=== PATIENT | female | born 1930 | race Caucasian/White ===

== ENCOUNTER 2019-10-17 10:38 | Outpatient (CLI) | payer MEDICARE, OTHER ==
--- NOTE | 2019-10-19 13:44 | RAD ---
Modified barium swallow HISTORY: Pneumonitis due to inhalation of food and vomiting. Dysphagia. Feeding difficulties. Fluoroscopy time 20 seconds. FINDINGS: Exam was performed by speech pathology with multiple consistencies. Video review is availab le and demonstrates good bolus formation and retropulsion. Mild early spill of contrast with some consistencies. Prominent cricopharyngeal bar noted at the C5-6 level. Deep penetration with thin barium liquids. Wit h to material, there was extensive early spill of contrast to the level of the enlarged piriform sinuses. Small amount of residual with good clearing upon secondary swallowing. The esophagus below the level of the hypopharynx was not evaluated. Please see separate detailed repo rt from speech pathology.
== END 2019-10-17 10:39 | disposition home or self-care (01) ==
PROVIDERS: ATTEND Internal Medicine
DX: J69.0 Pneumonitis due to inhalation of food and vomit (principal); R13.10 Dysphagia, unspecified; R63.3 Feeding difficulties
CPT/HCPCS: 74230

== ENCOUNTER 2019-11-17 10:49 | Inpatient (IN) | payer MEDICARE, OTHER ==
[2019-11-17 12:02] LABS: Band 4 % (5-11); Eosinophils 8 % (0-10); Hemoglobin 14.8 g/dL (12.0-16.0); Lymphocytes 15 % (21-51); MDiff Complete? YES; Mean Corpuscular HGB CONC 32.7 g/dL (32.0-36.0); Mean Corpuscular Hemoglobin 32.8 pg (27.0-31.0); Mean Platelet Volume 11.6 fL (7.4-10.4); Monocytes 4 % (0-10); Neutrophil 67 % (42-75); Platelet Count 59 thou/uL (130-400); Platelet Morphology Comment Appears Decreased; Polychromasia SLIGHT = 2-3 cells (100X) (0-2/hpf); RBC Distribution Width 15.7 % (11.5-14.5); Reactive Lymphocytes 2 % (0-10); Schistocytes SLIGHT = 2-5 cells (100X) (0-1/hpf); White Blood Cell (WBC) Count 2.7 thou/uL (4.8-10.8)
[2019-11-17 12:06] LABS: ALT (SGPT) 47 U/L (8-55); AST (SGOT) 74 U/L (5-34); Albumin 3.2 g/dL (3.4-4.8); Alkaline Phosphatase 468 U/L (40-110); Anion Gap 13 mmol/L (10-20); BUN (Urea Nitrogen) 32 mg/dL (9.8-20.1); Bilirubin, Total 2.4 mg/dL (0.2-1.2); Calc. Creatinine Clearance 0 mL/min (70-130); Calcium 9.6 mg/dL (7.8-10.44); Carbon Dioxide 29 mmol/L (23-31); Chloride 96 mmol/L (98-107); Estimated GFR-MDRD 45; Globulin 3.1 g/dL (2.4-3.5); Glucose 77 mg/dL (83-110); Potassium 4.1 mmol/L (3.5-5.1); Protein, Total 6.3 g/dL (6.0-8.3); Sodium 134 mmol/L (136-145)
--- NOTE | 2019-11-17 12:25 | RAD ---
Chest AP view INDICATION: Shortness of breath, confusion and hypotension COMPARISON: October 31, 2013 and October 11, 2019 FINDINGS: Lungs: There is bilateral perihilar interstitial and airspace edema. There is worsening opacity in t he right lower lobe when compared to the October 11, 2019 exam suspicious for subsegmental volume loss and/or pneumonia. Cardiac silhouette: Moderate cardiomegaly Pulmonary vasculature: Moderate pulmonary vascular congestion Pleural spaces: There is a moderate right and small left pleural effusion Upper abdomen: No abnormality seen. Osseous structures: There is healed fracture deformity involving the lateral right sixth rib. Additional findings: Surgical clips in the axillary region are stable. IMPRESSION: Findings suspicious for mild to moderate CHF. There is opacity in the right lower lobe likely related to subsegmental volume loss within the moderate right pleural effusion. Component pneumonia is not excluded.
[2019-11-17 12:27] LABS: CKMB 1.8 ng/mL (0-6.6)
[2019-11-17 13:25] LABS: PTT 102.4 SEC (22.9-36.1)
[2019-11-17 13:28] LABS: Prothrombin Time 92.8 SEC (12.0-14.7)
[2019-11-17 13:29] LABS: INR-International Normal Ratio 12.4
[2019-11-17 13:36] LABS: Bilirubin Negative (Negative); Blood, Urine Negative (Negative); Clarity Clear (Clear); Glucose, Urine (Dipstick) Normal (Negative); Leukocyte Negative Leu/uL (Negative); Nitrite Negative (Negative); Protein, Urine (Dipstick) Negative (Neg-Trace)
[2019-11-17] MEDS ORDERED: Phytonadione 10 MG/ML AMP ONE (14:23)
[2019-11-17] MEDS ORDERED: Phytonadione 10 MG/ML AMP SLOW IVP SCH (14:30)
--- NOTE | 2019-11-17 15:43 | ULT ---
RIGHT UPPER QUADRANT ULTRASOUND: HISTORY: Altered mental status. FINDINGS: The liver, right kidney, and visualized portions of the pancreas are unremarkable. Numerous shadowin g gallstones are present with gallbladder wall thickening measuring 4 mm. A small amount of free flu id is noted posterior to the liver. IMPRESSION: Cholelithiasis. If there is high clinical concern for cholecystitis, further evaluation with HIDA sc an should be performed. POS: [facility]
[2019-11-17] MEDS ORDERED: Bisacodyl 10 MG SUPP PR PRN (16:09)
[2019-11-17] MEDS ORDERED: Acetaminophen 325 MG TAB PO PRN (16:09)
[2019-11-17] MEDS ORDERED: Senokot S 8.6-50 MG TAB PO PRN (16:09)
[2019-11-17] MEDS ORDERED: Ondansetron PF 4 MG/2 ML Vial IVP PRN (16:09)
[2019-11-17] MEDS ORDERED: Guaifenesin DM 100-10/5 ML UDCUP PO PRN (16:09)
--- NOTE | 2019-11-17 16:55 | CT ---
EXAM: Brain CT scan Without contrast: HISTORY: Altered mental status, weakness COMPARISON: 11/16/2019 FINDINGS: Motion artifact. Stable probable calcified meningioma on the left side of the posterior falx. Atrophy and chronic white matter ischemic change. No focal mass or midline shift. No intra or extra-axial hemorrhage. Stable chronic right sphenoid sinus disease. No significant new process. IMPRESSION: No mass or bleed or other significant acute intracranial process. Stable from yesterday's study.
[2019-11-17] MEDS ORDERED: Carvedilol 6.25 MG TAB PO SCH (17:00)
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
--- NOTE | 2019-11-17 20:31 | PDOC.EVN ---
Event Note - Event Note Event Note: Notified by RN, patient with brief episode of bradycardia to 20s, quickly recovered and remains in 50s. Asymptomatic. Will hold coreg this evening.Continue monitoring. Day team to decide if cardiology consult indicated.
--- NOTE | 2019-11-17 21:35 | PDOC.BPN ---
- Brief Progress Note Code wilberto called on this patient for BP in 40s When I arrived at patient room, I was told patient had bradycardia to 30s with 3.5 sec pause and BP in 40s SBP Patient admitted with INR of 12 and elevated LFTs. Has chronic A.Fib history Earlier, Coreg was held due to bradycardia. Patient awake and answering questions. Oriented to place and person but not to time Able to follow commands and move both upper extremities Examination of LEs reveals fluctuant swelling on the medial aspect of the left leg - concerning for hematoma EKG 12 lead obtained STAT personally reviewed - Sinus bradycardia Get STAT CBC, INR, Type & cross F/u CBC and transfuse PRN Patient will be moved to ICU Will place transcutaneous pads and ZOLL at bedside Has very poor IV access May need pressor therapy and/or blood transfusion Will contact Residents loss prevention auditor for Femoral Central line placement Case DW Dr. Adamson (Medical Delivery Technician) for a consult on this patient Total critical care time spent at bedside -40 min
[2019-11-17 21:41] LABS: #Eosinphils 0.1 thou/uL (0.0-0.7); #Lymphocytes 0.4 thou/uL (1.20-3.40); #Monocytes 0.3 thou/uL (0.11-0.59); %Basophils 0.1 % (0.0-1.0); %Eosinophils 4.3 % (0.0-10.0); %Lymphocytes 13.5 % (21.0-51.0); %Monocytes 10.9 % (0.0-10.0); %Neutrophils 71.3 % (42.0-75.0); Hemoglobin 12.5 g/dL (12.0-16.0); Mean Corpuscular HGB CONC 33.6 g/dL (32.0-36.0); Mean Corpuscular Hemoglobin 33.9 pg (27.0-31.0); Mean Platelet Volume 11.7 fL (7.4-10.4); Platelet Count 49 thou/uL (130-400); RBC Distribution Width 15.6 % (11.5-14.5); Red Blood Cell (RBC) Count 3.68 mill/uL (4.20-5.40); White Blood Cell (WBC) Count 2.8 thou/uL (4.8-10.8)
[2019-11-17 21:45] LABS: INR-International Normal Ratio 3.4; PTT 62.6 SEC (22.9-36.1); Prothrombin Time 33.9 SEC (12.0-14.7)
[2019-11-17] MEDS ORDERED: Norepinephrine 8 MG/0.9% NS 250 ML ONE (21:53)
[2019-11-17] MEDS ORDERED: Norepinephrine 8 MG/0.9% NS 250 ML IVPB SCH (22:19)
[2019-11-17 22:29] LABS: ALT (SGPT) 36 U/L (8-55); AST (SGOT) 69 U/L (5-34); Albumin 2.5 g/dL (3.4-4.8); Alkaline Phosphatase 350 U/L (40-110); Anion Gap 13 mmol/L (10-20); BUN (Urea Nitrogen) 30 mg/dL (9.8-20.1); Bilirubin, Total 1.8 mg/dL (0.2-1.2); Calc. Creatinine Clearance 57 mL/min (70-130); Calcium 8.4 mg/dL (7.8-10.44); Carbon Dioxide 24 mmol/L (23-31); Chloride 100 mmol/L (98-107); Estimated GFR-MDRD 46; Globulin 2.9 g/dL (2.4-3.5); Glucose 97 mg/dL (83-110); Potassium 4.6 mmol/L (3.5-5.1); Protein, Total 5.4 g/dL (6.0-8.3); Sodium 132 mmol/L (136-145)
--- NOTE | 2019-11-17 22:45 | PDOC.BPN ---
- Brief Progress Note Called after tonya ladd when patient became hypotension with systolic in the 40' s. She presented with progressive debility and INR > 10. Saw patient in C4. She was mentating and gave verbal consent to procedure due to emergent nature. Right femoral vein chosen d/t initial INR. Performed under ultrasound guidance. No immediate complications. Cleared to use. Formal op note to be dictated. Additional management per primary team and relevant consultants.
[2019-11-17] MEDS ORDERED: EPINEPHrine 1 MG, Admixture Fee 1 EACH in Dextrose 5% in Water 250 ML IVPB SCH (23:15)
--- NOTE | 2019-11-17 23:49 | PDOC.OP ---
Operative Note - Operative Note Operative Note: Femoral Central Line Procedure Note INDICATION: Severe Hypotension PROCEDURE INVESTMENT ASSOCIATE: Tahmina Campbell DO ATTENDING PHYSICIAN: Harvinder Zee MD who was present the entire time. Ultrasound Used: Yes CONSENT: Verbal consent was obtained from patient prior to the procedure d/t emergent nature. Indications, risks, and benefits were explained at length. PROCEDURE SUMMARY: A time out was performed. My hands were washed immediately prior to the procedure. I wore a surgical cap, mask with protective eyewear, sterile gown and sterile gloves throughout the procedure. The RIGHT inguinal region was prepped using chlorhexidine scrub and draped in sterile fashion using a full drape and sterile probe cover employed. The femoral artery and vein were identified via ultrasound. Anesthesia was achieved using 1% lidocaine. Visualizing the femoral vein throughout the procedure, the introducer needle was inserted medial to the femoral artery, inferior to the inguinal crease and into the femoral vein. Venous blood was withdrawn. The syringe was removed and a guidewire was advanced into the introducer needle. A small incision was made at the skin surface with a scalpel and the introducer needle was exchanged for a dilator over the guidewire. After appropriate dilation was obtained, the dilator was exchanged over the wire for a triple lumen central venous catheter, however there was difficulty in advancing the catheter so it was withdrawn and again the vein was visualized, the introducer needle was inserted and venous blood withdrawn. The guidewire did not pass easily, meeting resistance. A third attempt was made slightly more inferior and successful, easily advancing the guidewire, the dilator, and then the triple lumen CVC as above. The wire was removed and the catheter was hubbed at the skin and sutured in place. A sterile central line dressing was placed over the catheter at the insertion site. The patient tolerated the procedure without any hemodynamic compromise. At time of procedure completion, all ports aspirated and flushed properly. Estimated blood loss is 5-10ml.
[2019-11-17] MEDS: Famotidine 20 MG TAB PO SCH (23:58)
[2019-11-17] MEDS: Latanoprost 0.005% Ophth Soln 2.5 ml Bottle EA EYE SCH (23:58)
[2019-11-17] MEDS: Simvastatin 5 MG TAB PO SCH (23:58)
[2019-11-17] MEDS: Vancomycin 1.5 GRAM/300 ML BAG 1.5 GM in Premix Bag 1 BAG IVPB SCH (23:59)
[2019-11-18] MEDS: Hydrocortisone Sod Succ/PF 100 mg/2 ml Vial IVP SCH ×4 (00:05→17:45)
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
[2019-11-18] MEDS: Piperacillin/Tazobactam 3.375 GM in Sodium Chloride 0.9% 100 ML IVPB SCH ×4 (00:50→17:45)
[2019-11-18 03:34] LABS: #Basophils 0.1 thou/uL (0.0-0.2); #Eosinphils 0.1 thou/uL (0.0-0.7); #Lymphocytes 0.3 thou/uL (1.20-3.40); #Monocytes 0.5 thou/uL (0.11-0.59); #Neutrophils 5.4 thou/uL (1.40-6.50); %Basophils 1.5 % (0.0-1.0); %Eosinophils 1.7 % (0.0-10.0); %Lymphocytes 4.5 % (21.0-51.0); %Monocytes 8.2 % (0.0-10.0); %Neutrophils 84.2 % (42.0-75.0); Hemoglobin 14.2 g/dL (12.0-16.0); Mean Corpuscular HGB CONC 34.4 g/dL (32.0-36.0); Mean Corpuscular Hemoglobin 35.1 pg (27.0-31.0); Mean Platelet Volume 13.8 fL (7.4-10.4); Platelet Count 38 thou/uL (130-400); RBC Distribution Width 15.6 % (11.5-14.5); Red Blood Cell (RBC) Count 4.05 mill/uL (4.20-5.40); White Blood Cell (WBC) Count 6.4 thou/uL (4.8-10.8)
[2019-11-18 03:50] LABS: ALT (SGPT) 49 U/L (8-55); AST (SGOT) 83 U/L (5-34); Albumin 3.1 g/dL (3.4-4.8); Alkaline Phosphatase 457 U/L (40-110); Anion Gap 14 mmol/L (10-20); BUN (Urea Nitrogen) 31 mg/dL (9.8-20.1); Bilirubin, Total 3.2 mg/dL (0.2-1.2); Calc. Creatinine Clearance 61 mL/min (70-130); Calcium 9.1 mg/dL (7.8-10.44); Carbon Dioxide 26 mmol/L (23-31); Chloride 99 mmol/L (98-107); Estimated GFR-MDRD 49; Globulin 2.9 g/dL (2.4-3.5); Glucose 110 mg/dL (83-110); Magnesium 2.1 mg/dL (1.6-2.6); Potassium 4.2 mmol/L (3.5-5.1); Sodium 135 mmol/L (136-145)
[2019-11-18] MEDS: Levothyroxine Sodium 125 MCG TAB PO SCH (05:32)
[2019-11-18] MEDS ORDERED: Furosemide 40 MG/4 ML VIAL SLOW IVP SCH (06:00)
[2019-11-18] MEDS: Potassium Chloride 10 MEQ TAB PO SCH (08:00)
[2019-11-18 08:07] LABS: INR-International Normal Ratio 1.6; PTT 41.5 SEC (22.9-36.1); Prothrombin Time 18.7 SEC (12.0-14.7)
[2019-11-18 08:24] LABS: Anisocytosis SLIGHT = 6-15 cells (100X) (0-5/hpf); Band 22 % (5-11); Eosinophils 1 % (0-10); Hemoglobin 14.1 g/dL (12.0-16.0); Lymphocytes 2 % (21-51); MDiff Complete? YES; Mean Corpuscular HGB CONC 31.8 g/dL (32.0-36.0); Monocytes 3 % (0-10); Neutrophil 71 % (42-75); Platelet Count 63 thou/uL (130-400); Poikilocytosis SLIGHT = 6-15 cells (100X) (0-5/hpf); RBC Distribution Width 15.7 % (11.5-14.5); Reactive Lymphocytes 1 % (0-10); Red Blood Cell (RBC) Count 4.39 mill/uL (4.20-5.40)
[2019-11-18] MEDS ORDERED: FLU VACC TS2019-20(65YR UP)/PF 180 MCG/0.5 ML SYRINGE IM ONE (09:00)
[2019-11-18] MEDS ORDERED: Lisinopril 2.5 MG TAB PO SCH (09:00)
[2019-11-18] MEDS ORDERED: Digoxin 0.25 MG TAB PO SCH (09:00)
--- NOTE | 2019-11-18 09:44 | CT ---
EXAM: CT chest, abdomen, and pelvis without IV contrast: HISTORY: Lethargy, altered mental status, shortness of breath, left hip pain. COMPARISON: None FINDINGS: CT THORAX: Lungs: A moderately large right pleural effusion with associated passive atelectasis is present. Smal l left pleural effusion and atelectasis is identified. Linear densities are seen within the anterior aspect left upper lobe related to areas of scarring or atelectasis. Lymph nodes: Calcified mediastinal and hilar lymph nodes are present related to prior granulomatous d isease. No enlarged lymph nodes are appreciated on this nonenhanced CT scan exam.. Mediastinum: The heart is enlarged. Vascular calcifications are seen in the thoracic aorta and palm ry arteries. Chest wall: Subcutaneous edema is seen about the chest bilaterally greater laterally. There is sugges tion of right mastectomy. Dense coarsened calcification is seen in the right anterolateral chest wall. Surgical clips are seen overlying region of the left chest and along the left lateral chest wal l and on the right. CT ABDOMEN AND PELVIS: Lack of intravenous contrast limits sensitivity for evaluation of the parenchymal organs and vascular structures. Liver: Grossly normal nonenhanced CT appearance. Gallbladder: Multiple gallbladder calculi are seen in the gallbladder.\ Pancreas: Grossly normal nonenhanced CT appearance. Spleen:Few peripheral calcifications are seen. Adrenal glands: Mild nonspecific thickening of the adrenal glands without focal nodule appreciated. Kidneys: Right kidney is rotated. No renal calculi are seen, and there is no hydronephrosis bilateral ly. Urinary Bladder: Grossly normal appearance. Reproductive organs: Evidence of hysterectomy. Bowel: Moderate amount retained fecal material seen throughout the colon. Scattered colonic diverticu li are seen. Loops of small bowel are normal in caliber. The appendix is visualized and normal in caliber. Adenopathy:No enlarged lymph nodes are seen by CT size criteria. Peritoneum/retroperitoneum: Small amount of free fluid is seen adjacent to the liver and spleen. No f luid collection is seen in the abdomen or pelvis. There is minimal presacral edema present. Abdominal wall: Prominent subcutaneous edema is present diffusely suggesting anasarca. A right femora l vein central venous catheter is noted in place with the tip in the distal aspect of the right common iliac vein. Osseous structures: Bilateral glenohumeral osteoarthropathy is present much greater on the right. The re are calcifications seen adjacent to the proximal aspect left humeral neck which may represent intra-articular loose bodies. Multilevel degenerative changes are seen throughout the spine. Bilatera l hip osteoarthritis is present. Mild left convex curvature of thoracolumbar spine is present. IMPRESSION: 1. Moderately large right and small left pleural effusions with findings likely attributable to adjac ent passive atelectasis. 2. Linear scarring versus atelectasis in the left upper lobe. 3. Marked cardiomegaly. 4. Vascular calcifications in the thoracic and abdominal aorta and coronary arteries. 5. Small amount of ascites. There is also a small amount of presacral edema which is nonspecific. No adjacent thickening of the rectum is appreciated, but there is a moderate amount retained fecal material in the rectum. No fluid collection is seen in the abdomen or pelvis. 6. Cholelithiasis. 7. Constipation and colonic diverticulosis. 8. Evidence of anasarca.
[2019-11-18] MEDS: Liothyronine Sodium 25 MCG TAB PO SCH (09:45)
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
--- NOTE | 2019-11-18 17:05 | PDOC.HOSPP ---
- Subjective Encounter Date: 11/18/19 Encounter Time: : Subjective: awake, no sob or chest pain responds well to verbal stimuli no bleeding per rectum - Objective Vital Signs & Weight: Weight Admit Weight 229 lb Weight 229 lb 4.492 oz Most Recent Monitor Data Heart Rate from ECG 69 NIBP 106/65 NIBP BP-Mean 78 Respiration from ECG 16 SpO2 99 I&O: 11/17/19 11/18/19 11/19/19 06:59 06:59 06:59 Intake Total 1073.5 Output Total 650 Balance 423.5 Result Diagrams: 11/18/19 07:49 11/18/19 03:02 Additional Labs: Accuchecks 11/17/19 21:14 POC Glucose 111 H Hospitalist ROS - Medication Medications: Active Medications Generic Name Dose Route Start Last Admin Trade Name Freq PRN Reason Stop Dose Admin Famotidine 20 mg 11/17/19 21:00 11/17/19 23:58 Pepcid PO Not Given 2100 JUDY Hydrocortisone Sodium Succinate 50 mg 11/17/19 23:59 11/18/19 12:16 Solu-Cortef IVP 50 mg Q6HR JUDY Administration Piperacillin Sod/Tazobactam 100 mls @ 200 mls/hr 11/17/19 23:59 11/18/19 12: 16 Sod 3.375 gm/ Sodium Chloride IVPB 100 mls Q6HR JUDY Administration Vancomycin HCl 1.5 gm/ Device 300 mls @ 200 mls/hr 11/17/19 23:30 11/17/19 23 :59 IVPB 300 mls Q24HR JUDY Administration Latanoprost 1 drop 11/17/19 21:00 11/17/19 23:58 Xalatan 0.005% Ophth Soln EA EYE Not Given HS JUDY Levothyroxine Sodium 125 mcg 11/18/19 06:00 11/18/19 05:32 Synthroid PO 125 mcg 0600 JUDY Administration Liothyronine Sodium 25 mcg 11/18/19 09:00 11/18/19 09:45 Cytomel PO Not Given DAILY JUDY Potassium Chloride 10 meq 11/18/19 08:00 11/18/19 08:00 Klor-Con 10 PO Not Given QAM-WM JUDY Simvastatin 10 mg 11/17/19 21:00 11/17/19 23:58 Zocor PO Not Given HS JUDY - Exam General Appearance: awake alert Eye: PERRL, anicteric sclera ENT: no oropharyngeal lesions, dry oral mucosa Neck: supple, no JVD Heart: no murmur, irregular Respiratory: no wheezes, no rales, rhonchi Gastrointestinal: soft, normal bowel sounds, no guarding, no rigidity, distended Extremities: no cyanosis, 2+ LE edema Neurological: cranial nerve grossly intact, no focal deficits Hosp A/P (1) Acute exacerbation of CHF (congestive heart failure) Code(s): I50.9 - HEART FAILURE, UNSPECIFIED Status: Acute Qualifiers: Heart failure type: combined systolic and diastolic Qualified Code(s): I50.43 - Acute on chronic combined systolic (congestive) and diastolic ( congestive) heart failure (2) Sepsis Code(s): A41.9 - SEPSIS, UNSPECIFIED ORGANISM Status: Acute Qualifiers: Sepsis type: sepsis due to unspecified organism Sepsis acute organ dysfunction status: with acute organ dysfunction Severe sepsis acute organ dysfunction type: encephalopathy Severe sepsis shock status: with septic shock Qualified Code(s): A41.9 - Sepsis, unspecified organism; R65.21 - Severe sepsis with septic shock; G93.40 - Encephalopathy, unspecified (3) Coagulopathy Status: Resolved (4) Elevated LFTs Code(s): R94.5 - ABNORMAL RESULTS OF LIVER FUNCTION STUDIES Status: Acute (5) Thrombocytopenia Code(s): D69.6 - THROMBOCYTOPENIA, UNSPECIFIED Status: Acute (6) FTT (failure to thrive) in adult Status: Chronic (7) Dyslipidemia Code(s): E78.5 - HYPERLIPIDEMIA, UNSPECIFIED Status: Chronic (8) Acute metabolic encephalopathy Code(s): G93.41 - METABOLIC ENCEPHALOPATHY Status: Acute (9) Atrial fibrillation Code(s): I48.91 - UNSPECIFIED ATRIAL FIBRILLATION Status: Chronic - Plan is on tapering levophed, sbp around 120 on 3microgram/min now blood and urine cs are -ve. Unclear source of infection, likely lungs or right knee??, has chronic b/l LE lymphedema. is on vanc and zosyn, steroids stress dose coagulopathy is corrected with 3 ffp and vit k 10mg iv on arrival, no hemalatha bleeding anywhere has anasarca, cannot diurese due to hypotension no signs of TTP, has low platelets, appreciate [facility] help d/w son at bedside and gave a full update including results of imaging and labs done. Clinically is improving
--- NOTE | 2019-11-18 18:40 | CON ---
DATE OF CONSULTATION: 11/18/2019 SERVICE: Pulmonary Medicine. REASON FOR CONSULTATION: ICU patient. HISTORY OF PRESENT ILLNESS: The patient is an 89-year-old white female with past medical history significant for Coumadin intake. Ultimately, she was in her usual state of health when she started having increasing lethargy for about the last 2 weeks. She was brought to the Emergency Department, she was discovered to be supratherapeutic. She was placed in the telemetry unit. In that location, she was identified as having extraordinarily low blood pressure. As such, she was rapid and brought to the ICU. A central line was placed and she was started on Levophed. Because she was leukopenic, and had hypothermia, panculture and empiric antibiotics were initiated. The patient cannot provide much in the way of interval history and cannot discuss any of her presenting symptoms. PAST MEDICAL HISTORY: 1. Atrial fibrillation, chronic. 2. Hypertension. 3. Dyslipidemia. 4. Hypothyroidism. 5. Glaucoma. 6. Chronic diastolic heart failure. 7. History of breast cancer. 8. History of uterine cancer. 9. Multiple skin cancers. 10. Osteoarthritis. 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 12. Morbid obesity. PAST SURGICAL HISTORY: 1. Lower extremity surgeries. 2. Hysterectomy. 3. Mastectomy. 4. Left ankle surgery. 5. Right knee surgery. FAMILY HISTORY: Noncontributory. SOCIAL HISTORY: Negative for alcohol, tobacco, or illicit drug use. She has no exposure to chemicals, dust, asbestos, or tuberculosis. ALLERGIES: AMIODARONE. MEDICATIONS: List of the patient's inpatient medications was reviewed. Multiple updates were made at this time. REVIEW OF SYSTEMS: General, head, ears, eyes, nose, throat, cardiovascular, respiratory, GI, , musculoskeletal, neurologic, and skin are negative except as mentioned in the HPI. PHYSICAL EXAMINATION: VITAL SIGNS: Afebrile, pulse 81, and blood pressure 112/62 on 3 mcg of Levophed. Respirations 16 and saturation 99%, currently on 3 L nasal cannula. GENERAL: The patient is awake and alert, in no apparent distress. LUNGS: Good air entry bilaterally. Dependent crackles are noted. No prolonged expiratory phase or wheezing is appreciated. HEART: Normal rate. Regular. ABDOMEN: Soft, nontender, and nondistended. Bowel sounds are positive. MUSCULOSKELETAL: No cyanosis or clubbing. There is bilateral 3+ pitting. NEUROLOGIC: Grossly nonfocal. LABORATORY DATA: Original WBC 2.7. Hemoglobin is stable at 14. Platelets 59,000 are gently uptrending. Neutrophil count and bands are quite elevated. INR was originally 12.4, which is downtrending to 1.6. Total bilirubin is uptrending to 3.2. Alkaline phosphatase 457. Liver function studies are otherwise unremarkable. AST and ALT are both uptrending. Creatinine downtrending to 1.05. Basic metabolic profile is otherwise unremarkable. BNP 211. Urinalysis is negative. Blood cultures x2 and urine culture are negative to-date. IMAGIN. CT of the chest, abdomen, and pelvis demonstrate findings consistent with anasarca. She has bilateral pleural effusions. The right is moderate, and the left is small. There is an adjacent atelectasis present. Marked cardiomegaly is noted. Vascular calcifications are present throughout the abdominal aorta, and coronary arteries. Ascites is noted. There is extensive cholelithiasis. Constipation and diverticulosis are noted without evidence of diverticulitis. 2. CT of the brain demonstrates no acute intracranial abnormality. 3. Abdominal ultrasound demonstrates numerous shadowing gallstones. The wall is thickened measuring 4 mm. Small amount of free fluid is noted in the posterior to the liver. 4. Chest x-ray demonstrates findings related to volume overload/heart failure. No acute pneumonia is identified. ASSESSMENT: 1. Acute hypoxic respiratory failure. 2. Septic shock, suspected. 3. Abdominal discomfort in the right upper quadrant. 4. Metabolic encephalopathy, resolved. DISCUSSION AND PLAN: I believe the patient had leukopenia, and hypothermia secondary to sepsis profile. Right now, her alkaline phosphatase and bilirubin are uptrending. As such, I will move forward with a HIDA scan as directed by the abnormal ultrasound of the abdomen, and extensive cholelithiasis. Gastroenterology consultation will be placed. The patient will remain in the ICU until she is successfully weaned off the Levophed. We have initiated stress doses of steroids, and empiric antibiotics have been initiated, which should be more than adequate to cover a GI bethany. Vancomycin can be dropped in 24 hours, if no additional infectious profile are identified. Critical Care will follow in this location. Dr. Ring has an established relationship with Ms. Mays and will assume coverage starting tomorrow. Job ID: [id number]
--- NOTE | 2019-11-18 19:59 | PRG ---
DATE OF SERVICE: 11/18/2019 SUBJECTIVE: Patient was seen and examined at bedside and overnight events noted. Patient denies any shortness of breath or chest pain or palpitation. No history of nausea or vomiting or diarrhea or fever or chills or cramps. OBJECTIVE: GENERAL: This is an elderly female, in no apparent distress. VITAL SIGNS: Temperature 97.7. Heart rate 76. Respiratory rate 16. Blood pressure 94/49. HEENT: Atraumatic, normocephalic. Oral mucosa is moist NECK: Supple. CARDIOVASCULAR: S1, S2 heard. Rate and rhythm regular. RESPIRATORY: Clear to auscultation. GASTROINTESTINAL: Abdomen is soft. MUSCULOSKELETAL: No tenderness. No edema. DERMATOLOGIC: No skin rash. NEUROLOGIC: Alert and awake and oriented X3. No focal neurologic deficits. Moving all the extremities. PSYCHIATRIC: Mood and affect normal. LABORATORY DATA: Potassium is 4.2, BUN is 31, and creatinine is 1.05. ASSESSMENT AND PLAN: 1. Acute kidney injury on chronic kidney disease stage 3. Renal function is stable. We will continue to monitor. 2. Edema, on diuretics. 3. Hyponatremia, limit fluid intake. 4. Hypoalbuminemia. 5. Elevated liver enzymes. 6. Elevated BNP. Renal function stays stable at this point. Avoid nephrotoxins and we will continue to monitor renal function while on diuretics. Recommend cautious use of potassium. Job ID: [id number]
[2019-11-18] MEDS: Famotidine 20 MG TAB PO SCH (21:18)
[2019-11-18] MEDS: Simvastatin 5 MG TAB PO SCH (21:18)
[2019-11-18] MEDS: Latanoprost 0.005% Ophth Soln 2.5 ml Bottle EA EYE SCH (21:23)
[2019-11-18] MEDS: Vancomycin 1.5 GRAM/300 ML BAG 1.5 GM in Premix Bag 1 BAG IVPB SCH (23:11)
[2019-11-19] MEDS: Hydrocortisone Sod Succ/PF 100 mg/2 ml Vial IVP SCH ×3 (00:54→11:53)
[2019-11-19] MEDS: Piperacillin/Tazobactam 3.375 GM in Sodium Chloride 0.9% 100 ML IVPB SCH ×5 (00:55→23:06)
[2019-11-19 04:57] LABS: INR-International Normal Ratio 1.5
[2019-11-19 05:02] LABS: PTT 47.9 SEC (22.9-36.1)
[2019-11-19] MEDS: Levothyroxine Sodium 125 MCG TAB PO SCH (05:39)
[2019-11-19 06:01] VITALS: BMI 36.8
[2019-11-19 08:14] LABS: #Lymphocytes 0.5 thou/uL (1.20-3.40); #Monocytes 0.1 thou/uL (0.11-0.59); #Neutrophils 2.8 thou/uL (1.40-6.50); %Basophils 0.1 % (0.0-1.0); %Eosinophils 0.4 % (0.0-10.0); %Lymphocytes 13.9 % (21.0-51.0); %Monocytes 4.1 % (0.0-10.0); %Neutrophils 81.5 % (42.0-75.0); Hemoglobin 13.3 g/dL (12.0-16.0); Mean Corpuscular HGB CONC 33.2 g/dL (32.0-36.0); Mean Corpuscular Hemoglobin 33.7 pg (27.0-31.0); Mean Platelet Volume 11.2 fL (7.4-10.4); Platelet Count 52 thou/uL (130-400); RBC Distribution Width 15.6 % (11.5-14.5); Red Blood Cell (RBC) Count 3.95 mill/uL (4.20-5.40); White Blood Cell (WBC) Count 3.4 thou/uL (4.8-10.8)
[2019-11-19 08:29] LABS: ALT (SGPT) 42 U/L (8-55); AST (SGOT) 64 U/L (5-34); Albumin 2.8 g/dL (3.4-4.8); Alkaline Phosphatase 369 U/L (40-110); Anion Gap 11 mmol/L (10-20); BUN (Urea Nitrogen) 28 mg/dL (9.8-20.1); Bilirubin, Total 2.4 mg/dL (0.2-1.2); Calc. Creatinine Clearance 63 mL/min (70-130); Calcium 9.3 mg/dL (7.8-10.44); Carbon Dioxide 28 mmol/L (23-31); Chloride 101 mmol/L (98-107); Estimated GFR-MDRD 52; Globulin 2.7 g/dL (2.4-3.5); Glucose 119 mg/dL (83-110); Protein, Total 5.5 g/dL (6.0-8.3); Sodium 136 mmol/L (136-145)
[2019-11-19] MEDS: Potassium Chloride 10 MEQ TAB PO SCH (08:55)
[2019-11-19] MEDS: Liothyronine Sodium 25 MCG TAB PO SCH (09:08)
--- NOTE | 2019-11-19 12:20 | PRG ---
DATE OF SERVICE: 11/19/2019 SUBJECTIVE: Patient was seen and examined at bedside and overnight events noted. Patient denies any shortness of breath or chest pain or palpitation. No history of nausea or vomiting or diarrhea or fever or chills or cramps. OBJECTIVE: GENERAL: This is well-built female, in no apparent distress. VITAL SIGNS: Temperature 96, heart rate 60, respiratory rate , and blood pressure 109/74. HEENT: Atraumatic, normocephalic. Oral mucosa is moist. NECK: Supple. CARDIOVASCULAR: S1, S2 heard. Rate and rhythm regular. RESPIRATORY: Clear to auscultation. GASTROINTESTINAL: Abdomen is soft. MUSCULOSKELETAL: No tenderness. No edema. DERMATOLOGIC: No skin rash. NEUROLOGIC: Alert and awake and oriented x3. No focal neurologic deficits. Moving all the extremities. PSYCHIATRIC: Mood and affect normal. LABORATORY DATA: Potassium 4.0, BUN is 28, and creatinine is 1.01. ASSESSMENT AND PLAN: 1. Acute kidney injury on chronic kidney stage 3, stable. 2. Edema, stable. 3. Hyponatremia. 4. Hypoalbuminemia. 5. Elevated liver enzymes. 6. Elevated BNP. 7. Overall renal function is better and stable. We will follow. Job ID: [id number]
--- NOTE | 2019-11-19 13:31 | PDOC.HOSPP ---
- Subjective Encounter Date: 11/19/19 Encounter Time: 11:25 Subjective: awake, no abd pain or sob is off levophed drip from 4 am no diarrhea or nausea - Objective Vital Signs & Weight: Vital Signs (12 hours) Temp Pulse Ox 11/19/19 11:00 96.8 F L 11/19/19 08:00 96.9 F L 95 11/19/19 04:00 96.9 F L Weight Admit Weight 229 lb Weight 234 lb 12.677 oz Most Recent Monitor Data Heart Rate from ECG 65 NIBP 109/74 NIBP BP-Mean 85 Respiration from ECG 20 SpO2 92 I&O: 11/18/19 11/19/19 11/20/19 06:59 06:59 07:59 Intake Total 1073.5 1104.3 100 Output Total 650 202 Balance 423.5 902.3 100 Result Diagrams: 11/19/19 08:00 11/19/19 08:00 Hospitalist ROS - Medication Medications: Active Medications Generic Name Dose Route Start Last Admin Trade Name Libra PRN Reason Stop Dose Admin Famotidine 20 mg 11/17/19 21:00 11/18/19 21:18 Pepcid PO 20 mg 2100 JUDY Administration Hydrocortisone Sodium Succinate 50 mg 11/17/19 23:59 11/19/19 11:53 Solu-Cortef IVP 50 mg Q6HR JUDY Administration Piperacillin Sod/Tazobactam 100 mls @ 200 mls/hr 11/17/19 23:59 11/19/19 11: 52 Sod 3.375 gm/ Sodium Chloride IVPB 100 mls Q6HR JUDY Administration Vancomycin HCl 1.5 gm/ Device 300 mls @ 200 mls/hr 11/17/19 23:30 11/18/19 23 :11 IVPB 300 mls Q24HR JUDY Administration Latanoprost 1 drop 11/17/19 21:00 11/18/19 21:23 Xalatan 0.005% Ophth Soln EA EYE Not Given HS JUDY Levothyroxine Sodium 125 mcg 11/18/19 06:00 11/19/19 05:39 Synthroid PO 125 mcg 0600 JUDY Administration Liothyronine Sodium 25 mcg 11/18/19 09:00 11/19/19 09:08 Cytomel PO 25 mcg DAILY JUDY Administration Potassium Chloride 10 meq 11/18/19 08:00 11/19/19 08:55 Klor-Con 10 PO 10 meq QAM-WM JUDY Administration Simvastatin 10 mg 11/17/19 21:00 11/18/19 21:18 Zocor PO 10 mg HS JUDY Administration - Exam General Appearance: awake alert Eye: PERRL, anicteric sclera ENT: no oropharyngeal lesions, moist mucosa Neck: supple, no JVD Heart: RRR, no murmur Respiratory: no wheezes, no rales Gastrointestinal: soft, non-tender, non-distended, normal bowel sounds Extremities: no cyanosis, 1+ LE edema Neurological: cranial nerve grossly intact, no focal deficits Hosp A/P (1) Acute exacerbation of CHF (congestive heart failure) Code(s): I50.9 - HEART FAILURE, UNSPECIFIED Status: Acute Qualifiers: Heart failure type: combined systolic and diastolic Qualified Code(s): I50.43 - Acute on chronic combined systolic (congestive) and diastolic ( congestive) heart failure (2) Sepsis Code(s): A41.9 - SEPSIS, UNSPECIFIED ORGANISM Status: Acute Qualifiers: Sepsis type: sepsis due to unspecified organism Sepsis acute organ dysfunction status: with acute organ dysfunction Severe sepsis acute organ dysfunction type: encephalopathy Severe sepsis shock status: with septic shock Qualified Code(s): A41.9 - Sepsis, unspecified organism; R65.21 - Severe sepsis with septic shock; G93.40 - Encephalopathy, unspecified (3) Coagulopathy Status: Resolved (4) Elevated LFTs Code(s): R94.5 - ABNORMAL RESULTS OF LIVER FUNCTION STUDIES Status: Acute (5) Thrombocytopenia Code(s): D69.6 - THROMBOCYTOPENIA, UNSPECIFIED Status: Acute (6) FTT (failure to thrive) in adult Status: Chronic (7) Dyslipidemia Code(s): E78.5 - HYPERLIPIDEMIA, UNSPECIFIED Status: Chronic (8) Acute metabolic encephalopathy Code(s): G93.41 - METABOLIC ENCEPHALOPATHY Status: Acute (9) Atrial fibrillation Code(s): I48.91 - UNSPECIFIED ATRIAL FIBRILLATION Status: Chronic - Plan off levophed, sbp around 110 blood and urine cs are -ve. Unclear source of infection, likely lungs or right knee??, has chronic b/l LE lymphedema. is on vanc and zosyn, will dc steroids coagulopathy is corrected with 3 ffp and vit k 10mg iv on arrival, no hemalatha bleeding anywhere has anasarca, will diurese when more stable may transfer to tele prognosis guarded
[2019-11-19] MEDS: Famotidine 20 MG TAB PO SCH (20:11)
[2019-11-19] MEDS: Simvastatin 5 MG TAB PO SCH (20:12)
[2019-11-19] MEDS: Latanoprost 0.005% Ophth Soln 2.5 ml Bottle EA EYE SCH (20:12)
[2019-11-19 22:33] LABS: Vancomycin, Trough 16.9 ug/mL
[2019-11-19] MEDS: Vancomycin 1.5 GRAM/300 ML BAG 1.5 GM in Premix Bag 1 BAG IVPB SCH (23:31)
[2019-11-20] MEDS: Levothyroxine Sodium 125 MCG TAB PO SCH (06:17)
[2019-11-20] MEDS: Piperacillin/Tazobactam 3.375 GM in Sodium Chloride 0.9% 100 ML IVPB SCH ×4 (06:17→23:29)
[2019-11-20 06:48] LABS: #Basophils 0.1 thou/uL (0.0-0.2); #Lymphocytes 0.4 thou/uL (1.20-3.40); #Monocytes 0.3 thou/uL (0.11-0.59); #Neutrophils 4.2 thou/uL (1.40-6.50); %Basophils 1.8 % (0.0-1.0); %Eosinophils 0.3 % (0.0-10.0); %Lymphocytes 8.8 % (21.0-51.0); %Monocytes 5.1 % (0.0-10.0); %Neutrophils 84.1 % (42.0-75.0); Hemoglobin 13.4 g/dL (12.0-16.0); INR-International Normal Ratio 2.6; Mean Corpuscular HGB CONC 33.3 g/dL (32.0-36.0); Mean Corpuscular Hemoglobin 33.9 pg (27.0-31.0); Mean Platelet Volume 11.4 fL (7.4-10.4); Platelet Count 58 thou/uL (130-400); Prothrombin Time 27.8 SEC (12.0-14.7); RBC Distribution Width 15.9 % (11.5-14.5); Red Blood Cell (RBC) Count 3.94 mill/uL (4.20-5.40)
[2019-11-20 07:06] LABS: ALT (SGPT) 42 U/L (8-55); AST (SGOT) 58 U/L (5-34); Albumin 2.7 g/dL (3.4-4.8); Alkaline Phosphatase 312 U/L (40-110); Anion Gap 11 mmol/L (10-20); BUN (Urea Nitrogen) 32 mg/dL (9.8-20.1); Bilirubin, Total 2.1 mg/dL (0.2-1.2); Calc. Creatinine Clearance 66 mL/min (70-130); Calcium 9.1 mg/dL (7.8-10.44); Carbon Dioxide 29 mmol/L (23-31); Chloride 104 mmol/L (98-107); Estimated GFR-MDRD 53; Globulin 2.8 g/dL (2.4-3.5); Glucose 100 mg/dL (83-110); Protein, Total 5.5 g/dL (6.0-8.3); Sodium 140 mmol/L (136-145)
[2019-11-20] MEDS: Potassium Chloride 10 MEQ TAB PO SCH (08:48)
[2019-11-20] MEDS: Liothyronine Sodium 25 MCG TAB PO SCH (08:48)
--- NOTE | 2019-11-20 10:18 | PRG ---
DATE OF SERVICE: 11/20/2019 SUBJECTIVE: This morning, she is awake, alert, and responsive. OBJECTIVE: VITAL SIGNS: Temperature 98, blood pressure 99/59, . CHEST: Decreased breath sounds. No wheezing. CARDIAC: Normal S1 and S2. No gallops. ABDOMEN: No masses. LABORATORY DATA: INR is 2.6. Lytes are normal. White count is 5000. Renal function is normal. ASSESSMENT: Atrial fibrillation, congestive heart failure, coagulopathy, thrombocytopenia, metabolic encephalopathy improved. PLAN: She will be transferred out of the ICU. Continue supportive care, PT. Pulmonary will follow. Job ID: [id number]
--- NOTE | 2019-11-20 13:12 | PRG ---
DATE OF SERVICE: 11/20/2019 SUBJECTIVE: Patient was seen and examined at bedside and overnight events noted. Patient denies any shortness of breath or chest pain or palpitation. No history of nausea or vomiting or diarrhea or fever or chills or cramps. OBJECTIVE: General: This is an elderly female, in no acute distress. Vital Signs: Temperature 96.9. Heart Rate 68. Respiratory Rate 18. Blood Pressure 111/59. HEENT: Atraumatic, normocephalic. Oral mucosa is moist. Neck: Supple. Cardiovascular: S1, S2 heard. Rate and rhythm regular. Respiratory: Clear to auscultation. Gastrointestinal: Abdomen is soft. Musculoskeletal: No tenderness. No edema. Dermatologic: No skin rash. Neurologic: Alert and awake and oriented x3. No focal neurologic deficits. Moving all the extremities. Psychiatric: Mood and affect normal. LABORATORY DATA: Potassium 4.0, BUN 32, and creatinine 0.9. ASSESSMENT AND PLAN: 1. Acute kidney injury on chronic kidney, stage 3, much better, looks like back to baseline. 2. Altered mentation, stable. 3. Edema. 4. Hyponatremia. 5. Elevated liver enzymes. Overall, labs are better. I will sign off. Please call back with any questions. Job ID: [id number]
--- NOTE | 2019-11-20 13:20 | PDOC.HOSPP ---
- Subjective Encounter Date: 11/20/19 Encounter Time: 12:00 Subjective: awake, no sob, ate her breakfast responds well to verbal stimuli - Objective Vital Signs & Weight: Vital Signs (12 hours) Temp Pulse Ox 11/20/19 12:00 96.9 F L 11/20/19 08:00 96.8 F L 99 11/20/19 01:00 96.0 F L Weight Admit Weight 229 lb Weight 238 lb 8.642 oz Most Recent Monitor Data Heart Rate from ECG 57 NIBP 87/46 NIBP BP-Mean 59 Respiration from ECG 20 SpO2 99 I&O: 11/19/19 11/20/19 11/21/19 05:59 06:59 06:59 Intake Total 380 Output Total 200 Balance 180 Result Diagrams: 11/20/19 06:30 11/20/19 06:30 Hospitalist ROS - Medication Medications: Active Medications Generic Name Dose Route Start Last Admin Trade Name Freq PRN Reason Stop Dose Admin Famotidine 20 mg 11/17/19 21:00 11/19/19 20:11 Pepcid PO 20 mg 2100 JUDY Administration Piperacillin Sod/Tazobactam 100 mls @ 200 mls/hr 11/17/19 23:59 11/20/19 12: 05 Sod 3.375 gm/ Sodium Chloride IVPB 100 mls Q6HR JUDY Administration Vancomycin HCl 1.5 gm/ Device 300 mls @ 200 mls/hr 11/17/19 23:30 11/19/19 23 :31 IVPB 300 mls Q24HR JUDY Administration Latanoprost 1 drop 11/17/19 21:00 11/19/19 20:12 Xalatan 0.005% Ophth Soln EA EYE Not Given HS JUDY Levothyroxine Sodium 125 mcg 11/18/19 06:00 11/20/19 06:17 Synthroid PO 125 mcg 0600 JUDY Administration Liothyronine Sodium 25 mcg 11/18/19 09:00 11/20/19 08:48 Cytomel PO 25 mcg DAILY JUDY Administration Potassium Chloride 10 meq 11/18/19 08:00 11/20/19 08:48 Klor-Con 10 PO 10 meq QAM-WM JUDY Administration Simvastatin 10 mg 11/17/19 21:00 11/19/19 20:12 Zocor PO 10 mg HS JUDY Administration - Exam General Appearance: awake alert Eye: PERRL, anicteric sclera ENT: no oropharyngeal lesions, moist mucosa Neck: supple, no JVD Heart: RRR, no murmur Respiratory: no wheezes, no rales Gastrointestinal: soft, non-tender, non-distended, normal bowel sounds Extremities: no cyanosis, 2+ LE edema Neurological: cranial nerve grossly intact, no focal deficits Hosp A/P (1) Acute exacerbation of CHF (congestive heart failure) Code(s): I50.9 - HEART FAILURE, UNSPECIFIED Status: Acute Qualifiers: Heart failure type: combined systolic and diastolic Qualified Code(s): I50.43 - Acute on chronic combined systolic (congestive) and diastolic ( congestive) heart failure (2) Sepsis Code(s): A41.9 - SEPSIS, UNSPECIFIED ORGANISM Status: Acute Qualifiers: Sepsis type: sepsis due to unspecified organism Sepsis acute organ dysfunction status: with acute organ dysfunction Severe sepsis acute organ dysfunction type: encephalopathy Severe sepsis shock status: with septic shock Qualified Code(s): A41.9 - Sepsis, unspecified organism; R65.21 - Severe sepsis with septic shock; G93.40 - Encephalopathy, unspecified (3) Coagulopathy Status: Resolved (4) Elevated LFTs Code(s): R94.5 - ABNORMAL RESULTS OF LIVER FUNCTION STUDIES Status: Acute (5) Thrombocytopenia Code(s): D69.6 - THROMBOCYTOPENIA, UNSPECIFIED Status: Acute (6) FTT (failure to thrive) in adult Status: Chronic (7) Dyslipidemia Code(s): E78.5 - HYPERLIPIDEMIA, UNSPECIFIED Status: Chronic (8) Acute metabolic encephalopathy Code(s): G93.41 - METABOLIC ENCEPHALOPATHY Status: Acute (9) Atrial fibrillation Code(s): I48.91 - UNSPECIFIED ATRIAL FIBRILLATION Status: Chronic - Plan off levophed from 11/19/2019, sbp around 90-110, cannot diurese. blood and urine cs are -ve. Unclear source of infection, likely lungs or right knee??, has chronic b/l LE lymphedema. is on vanc and zosyn coagulopathy is corrected with 3 ffp and vit k 10mg iv on arrival, no hemalatha bleeding anywhere has anasarca, needs diuresis when more stable may transfer to [facility] guarded will get palliative care consultation for hospice or palliative care, has mulitple med issues and adv age with very poor functional status.
[2019-11-20] MEDS: Famotidine 20 MG TAB PO SCH (20:27)
[2019-11-20] MEDS: Latanoprost 0.005% Ophth Soln 2.5 ml Bottle EA EYE SCH (20:27)
[2019-11-20] MEDS: Simvastatin 5 MG TAB PO SCH (20:27)
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
--- NOTE | 2019-11-20 22:27 | PRG ---
DATE OF SERVICE: 11/19/2019 SUBJECTIVE: Shelia Martinez who has been admitted to the hospital on 11/16 with hypotension. She had a CT abdomen done, which showed multiple abnormalities. A chest x-ray shows right-sided pleural effusion. In the ICU, she was on a Levophed. She has been off the Levophed. This morning, she denies any pain, discomfort, or shortness of breath. OBJECTIVE: VITAL SIGNS: Saturations are 98%, blood pressure , respirations 18. CHEST: Decreased breath sounds in right lung and left unremarkable. CARDIAC: Normal S1 and S2. No gallops. ABDOMEN: No masses. LABORATORY DATA: White count 3000, H and H of 13 and 40, and platelet count is low at 50,000. INR is 1.5. Renal function has improved. Total bilirubin is 2.5, AST , and alkaline phosphatase is 365. IMPRESSION: Hypotension, coagulopathy, abnormal liver function profile, right pleural effusion, congestive heart failure, advanced age, obesity. PLAN: 1. Continue broad-spectrum antibiotics and stress-dosed steroids. 2. Deescalate antibiotics once we get cultures back. 3. We will follow. Job ID: [id number]
[2019-11-21] MEDS: HYDROcodone/Acetaminophen 5/325 mg Tablet PO PRN ×2 (00:06→05:08)
[2019-11-21] MEDS: Vancomycin 1.5 GRAM/300 ML BAG 1.5 GM in Premix Bag 1 BAG IVPB SCH (00:06)
[2019-11-21 05:08] LABS: #Eosinphils 0.4 thou/uL (0.0-0.7); #Lymphocytes 0.6 thou/uL (1.20-3.40); #Monocytes 0.4 thou/uL (0.11-0.59); %Basophils 0.2 % (0.0-1.0); %Eosinophils 6.7 % (0.0-10.0); %Lymphocytes 10.5 % (21.0-51.0); %Neutrophils 75.6 % (42.0-75.0); Hemoglobin 13.4 g/dL (12.0-16.0); Mean Corpuscular HGB CONC 33.1 g/dL (32.0-36.0); Mean Corpuscular Hemoglobin 33.7 pg (27.0-31.0); Mean Platelet Volume 10.9 fL (7.4-10.4); Platelet Count 64 thou/uL (130-400); RBC Distribution Width 15.8 % (11.5-14.5); Red Blood Cell (RBC) Count 3.98 mill/uL (4.20-5.40); White Blood Cell (WBC) Count 5.3 thou/uL (4.8-10.8)
[2019-11-21] MEDS: Levothyroxine Sodium 125 MCG TAB PO SCH (05:08)
[2019-11-21] MEDS: Piperacillin/Tazobactam 3.375 GM in Sodium Chloride 0.9% 100 ML IVPB SCH (05:08)
[2019-11-21 05:10] LABS: PTT 46.8 SEC (22.9-36.1); Prothrombin Time 40.2 SEC (12.0-14.7)
[2019-11-21 05:17] LABS: INR-International Normal Ratio 4.2
[2019-11-21 05:26] LABS: ALT (SGPT) 45 U/L (8-55); AST (SGOT) 60 U/L (5-34); Albumin 2.7 g/dL (3.4-4.8); Alkaline Phosphatase 278 U/L (40-110); Anion Gap 11 mmol/L (10-20); BUN (Urea Nitrogen) 35 mg/dL (9.8-20.1); Bilirubin, Total 2.4 mg/dL (0.2-1.2); Calc. Creatinine Clearance 57 mL/min (70-130); Calcium 9.2 mg/dL (7.8-10.44); Carbon Dioxide 30 mmol/L (23-31); Chloride 103 mmol/L (98-107); Estimated GFR-MDRD 47; Globulin 2.7 g/dL (2.4-3.5); Glucose 84 mg/dL (83-110); Potassium 3.9 mmol/L (3.5-5.1); Protein, Total 5.4 g/dL (6.0-8.3); Sodium 140 mmol/L (136-145)
[2019-11-21] MEDS: Liothyronine Sodium 25 MCG TAB PO SCH (07:48)
[2019-11-21] MEDS: Potassium Chloride 10 MEQ TAB PO SCH (07:48)
--- NOTE | 2019-11-21 08:09 | PRG ---
DATE OF SERVICE: 11/20/2019 SUBJECTIVE: She is a very pleasant 89-year-old female, hospitalized 2 days ago with a prolonged PT and INR and was given IV vitamin K. She was also hypotensive and overnight. I was asked to see this patient because of abnormal LFTs. The liver function tests are mildly elevated. The patient interestingly has no abdominal pain, no nausea, no vomiting. She had abdominal sonogram, which revealed some gallstone but no dilation of the bile duct. The patient is tolerating diet at this time. Her vitals were stable. She does not offer any complaints. PHYSICAL EXAMINATION: GENERAL: She appears very comfortable. VITAL SIGNS: Stable. Afebrile. Pulse is 156, blood pressure is around 87/46. CARDIOVASCULAR: Within normal limits. LUNGS: Within normal limits. ABDOMEN: Soft. No organomegaly. No tenderness. No masses. EXTREMITIES: Reveal chronic lymphedema and also some healed wound with over the right knee. LABORATORY DATA: Lytes are normal. BUN 32, creatinine is 0.99. Normal CBC. Liver function tests are coming down. She also has low platelet count of 58,000. LFTs from today, bilirubin is down to 2.1, AST down to 58, ALT 42, alkaline phosphatase 312. CLINICAL IMPRESSION: 1. Abnormal LFTs, etiology unclear. Possibilities include drug-induced liver injury, hypotension, and possibility of choledocholithiasis. Interestingly, the patient has no abdominal pain, no nausea or vomiting. 2. Thrombocytopenia, recurrent. 3. Prolonged PT, INR, . RECOMMENDATION: 1. Diet as tolerated. 2. Followup LFTs. 3. The family has decided not to do any aggressive measures and I will treat her symptomatically. Job ID: [id number]
--- NOTE | 2019-11-21 08:46 | PRG ---
DATE OF SERVICE: 11/21/2019 SUBJECTIVE: Shelia Mays remains in the ICU without any distress. She denies any discomfort or pain. OBJECTIVE: VITAL SIGNS: Temperature is 96, blood pressure 110/80, saturations are 98%, and respiratory rate 18. CHEST: Decreased breath sounds. No wheezing. CARDIAC: Normal S1 and S2. No gallops. ABDOMEN: No masses. LABORATORY DATA: INR is 4.2, prolonged. Albumin is low at 2.7, bilirubin is 2.4, and AST 60. White count 5000. All cultures so far negative. IMPRESSION: 1. Abnormal LFT, etiology unclear. 2. Respiratory failure. 3. Small pleural effusion. 4. Cardiomegaly. 5. Ascites. 6. Cholelithiasis. PLAN: continue antibiotics ,PT. Continue PT, supportive care. Deescalate antibiotics. We will follow. Job ID: [id number] MTDD
[2019-11-21] MEDS: Amoxicillin/Potassium Clav 500 MG TAB PO SCH ×2 (09:00→21:30)
--- NOTE | 2019-11-21 09:29 | RAD ---
XR Chest 1 View Portable History: Congestive heart failure Comparison: Radiograph November 17, 2019 Findings: Large right and moderate left pleural effusion. Mild pulmonary edema. No pneumothorax. Hear t size is enlarged. Dense calcifications of the aorta. Radiopacity projects over the right hemithorax, ovoid in nature, l ikely calcified granuloma of the soft tissues as seen on a recent CT exam. Impression: Mild progressive pulmonary edema. Similar effusions and cardiomegaly.
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
--- NOTE | 2019-11-21 13:50 | PDOC.PALFU ---
Palliative Care Follow-up Note Met with patient and son, then both independently. Discussed Goal of care specifically with son in relation to comfort measures and seeking non aggressive measures. Issue in relation to gaol of care is discharge Son is calling resources through work and states he will call a hospice company to come out to the home setting to discuss options of hospice in the home, concern is caregivers as he is not able to care for her independently and resources are limited. Currently with paid caregiver in the home. He would prefer to go to a residential care setting, but Ms Mays is desiring to return home. Consideration is that there may not be financial coverage for both residential care and hospice. Will reach out to Kaelyn Escamilla CM CCU and Ar[employer] to determine if there is any coverage that is unknown that could either provide paid caregivers in the home setting or both hospice and care in a facility. Will transition to diet with aspiration risk as patient failed her swallow study.
--- NOTE | 2019-11-21 19:29 | PDOC.HOSPP ---
- Subjective Encounter Date: 11/21/19 Subjective: The patient was seen and examined. She is off vasopressors today. She is sitting in her bed and enjoying her meal. Does not appear to be in any significant respiratory distress. - Objective Vital Signs & Weight: Vital Signs (12 hours) Temp Pulse Ox 11/21/19 16:00 97.4 F L 11/21/19 12:00 97.8 F 11/21/19 08:00 97.4 F L 99 Weight Admit Weight 229 lb Weight 227 lb 8.273 oz Most Recent Monitor Data Heart Rate from ECG 62 NIBP 96/58 NIBP BP-Mean 70 Respiration from ECG 15 SpO2 100 I&O: 11/20/19 11/21/19 11/22/19 06:59 06:59 06:59 Intake Total 1691 Output Total 550 600 Balance 1141 -600 Result Diagrams: 11/21/19 04:00 11/21/19 04:00 Hospitalist ROS - Medication Medications: Active Medications Generic Name Dose Route Start Last Admin Trade Name Freq PRN Reason Stop Dose Admin Hydrocodone Bitart/Acetaminophen 1 tab 11/17/19 16:09 11/21/19 05:08 [place] 5/325 PO 1 tab Q4H PRN Administration Moderate Pain (4-6) Amoxicillin/Clavulanate Potassium 500 mg 11/21/19 09:00 11/21/19 09:00 Augmentin PO 11/26/19 09:01 500 mg Q12HR JUDY Administration Famotidine 20 mg 11/17/19 21:00 11/20/19 20:27 Pepcid PO 20 mg 2100 JUDY Administration Latanoprost 1 drop 11/17/19 21:00 11/20/19 20:27 Xalatan 0.005% Ophth Soln EA EYE 1 drop HS JUDY Administration Levothyroxine Sodium 125 mcg 11/18/19 06:00 11/21/19 05:08 Synthroid PO 125 mcg 0600 JUDY Administration Liothyronine Sodium 25 mcg 11/18/19 09:00 11/21/19 07:48 Cytomel PO 25 mcg DAILY JUDY Administration Potassium Chloride 10 meq 11/18/19 08:00 11/21/19 07:48 Klor-Con 10 PO 10 meq QAM-WM JUDY Administration Senna/Docusate Sodium 2 tab 11/17/19 16:09 11/20/19 20:26 Senokot S PO 2 tab BID PRN Administration Constipation Simvastatin 10 mg 11/17/19 21:00 11/20/19 20:27 Zocor PO 10 mg HS JUDY Administration - Exam General Appearance: NAD, awake alert ENT: normocephalic atraumatic Neck: supple, no JVD Heart: RRR, no murmur, no gallops, no rubs, normal peripheral pulses Respiratory: CTAB, no wheezes, no rales, no ronchi, normal chest expansion Gastrointestinal: soft, non-tender, non-distended, normal bowel sounds Hosp A/P (1) Acute exacerbation of CHF (congestive heart failure) Code(s): I50.9 - HEART FAILURE, UNSPECIFIED Status: Acute Qualifiers: Heart failure type: combined systolic and diastolic Qualified Code(s): I50.43 - Acute on chronic combined systolic (congestive) and diastolic ( congestive) heart failure (2) Acute metabolic encephalopathy Code(s): G93.41 - METABOLIC ENCEPHALOPATHY Status: Acute (3) Elevated LFTs Code(s): R94.5 - ABNORMAL RESULTS OF LIVER FUNCTION STUDIES Status: Acute (4) Physical deconditioning Code(s): R53.81 - OTHER MALAISE Status: Acute - Plan Cardiogenic shock resolved. The patient is off both dobutamine and Levophed drips. Her respiratory status appears to be stable. The patient and her family are deciding against more intensive treatment. Their goal is to be discharged to home or residential sitting and then transition to hospice. She is stable to be transferred to the medical floor.
[2019-11-21] MEDS: Latanoprost 0.005% Ophth Soln 2.5 ml Bottle EA EYE SCH (21:30)
[2019-11-21] MEDS: Simvastatin 5 MG TAB PO SCH (21:30)
[2019-11-21] MEDS: Famotidine 20 MG TAB PO SCH (21:30)
[2019-11-22 05:26] LABS: PTT 58.6 SEC (22.9-36.1); Prothrombin Time 44.3 SEC (12.0-14.7)
[2019-11-22 05:30] LABS: #Eosinphils 0.4 thou/uL (0.0-0.7); #Lymphocytes 0.5 thou/uL (1.20-3.40); #Monocytes 0.4 thou/uL (0.11-0.59); #Neutrophils 3.8 thou/uL (1.40-6.50); %Basophils 0.2 % (0.0-1.0); %Eosinophils 7.8 % (0.0-10.0); %Lymphocytes 9.6 % (21.0-51.0); %Neutrophils 74.4 % (42.0-75.0); Hemoglobin 13.9 g/dL (12.0-16.0); Mean Corpuscular HGB CONC 31.8 g/dL (32.0-36.0); Mean Platelet Volume 11.2 fL (7.4-10.4); Platelet Count 71 thou/uL (130-400); RBC Distribution Width 16.1 % (11.5-14.5); Red Blood Cell (RBC) Count 4.22 mill/uL (4.20-5.40)
[2019-11-22 05:35] LABS: INR-International Normal Ratio 4.8
[2019-11-22 05:42] LABS: ALT (SGPT) 39 U/L (8-55); AST (SGOT) 46 U/L (5-34); Albumin 2.5 g/dL (3.4-4.8); Alkaline Phosphatase 255 U/L (40-110); Anion Gap 19 mmol/L (10-20); BUN (Urea Nitrogen) 30 mg/dL (9.8-20.1); Bilirubin, Total 2.5 mg/dL (0.2-1.2); Calc. Creatinine Clearance 68 mL/min (70-130); Calcium 8.7 mg/dL (7.8-10.44); Carbon Dioxide 22 mmol/L (23-31); Chloride 106 mmol/L (98-107); Estimated GFR-MDRD 58; Globulin 2.7 g/dL (2.4-3.5); Glucose 78 mg/dL (83-110); Protein, Total 5.2 g/dL (6.0-8.3); Sodium 143 mmol/L (136-145)
[2019-11-22] MEDS: Levothyroxine Sodium 125 MCG TAB PO SCH (06:34)
[2019-11-22] MEDS: HYDROcodone/Acetaminophen 5/325 mg Tablet PO PRN (09:20)
[2019-11-22] MEDS: Liothyronine Sodium 25 MCG TAB PO SCH (09:20)
[2019-11-22] MEDS: Amoxicillin/Potassium Clav 500 MG TAB PO SCH ×2 (09:21→20:21)
[2019-11-22] MEDS: Potassium Chloride 10 MEQ TAB PO SCH (09:21)
--- NOTE | 2019-11-22 09:40 | PRG ---
DATE OF SERVICE: 11/22/2019 SUBJECTIVE: This morning, awake, alert, and responsive. She denies any shortness of breath, pain. OBJECTIVE: VITAL SIGNS: Her blood pressure is 89/57, saturations on 2 L, respiratory rate 16, temperature 97, pulse 79. CHEST: Decreased breath sounds. No wheezing. CARDIAC: Normal S1, S2. ABDOMEN: No masses. LABORATORY DATA: Abnormal LFT. Bilirubin 2.5. INR 4.8. White count 5000. Chest x-ray shows increasing right pleural effusion. ASSESSMENT: 1. Hepatic failure. 2. Coagulopathy. 3. Right pleural effusion. PLAN: The patient is a DNR. Comfort care. Pulmonary/Critical Care will follow at a distance. Call, if needed. Job ID: [id number]
[2019-11-22 13:58] LABS: Prothrombin Time 43.4 SEC (12.0-14.7)
[2019-11-22 13:59] LABS: INR-International Normal Ratio 4.6
[2019-11-22] MEDS: Famotidine 20 MG TAB PO SCH (20:21)
[2019-11-22] MEDS: Simvastatin 5 MG TAB PO SCH (20:22)
[2019-11-22] MEDS: Latanoprost 0.005% Ophth Soln 2.5 ml Bottle EA EYE SCH (20:22)
--- NOTE | 2019-11-22 21:58 | PDOC.HOSPP ---
- Subjective Encounter Date: 11/22/19 Subjective: No SOB or distress - Objective Vital Signs & Weight: Vital Signs (12 hours) Temp Pulse Resp BP BP Pulse Ox 11/22/19 20:00 97.8 F 73 18 96/68 93 L 11/22/19 17:00 97.2 F L 74 16 112/74 98 11/22/19 11:16 97.3 F L 76 20 83/51 L 100 Weight Admit Weight 229 lb Weight 227 lb 8.273 oz Most Recent Monitor Data Heart Rate from ECG 71 NIBP 105/61 NIBP BP-Mean 75 Respiration from ECG 19 SpO2 96 I&O: 11/21/19 11/22/19 11/23/19 06:59 06:59 06:59 Intake Total 1691 160 Output Total 550 1075 Balance 1141 -915 Result Diagrams: 11/22/19 05:05 11/22/19 05:05 Hospitalist ROS - Medication Medications: Active Medications Generic Name Dose Route Start Last Admin Trade Name Freq PRN Reason Stop Dose Admin Hydrocodone Bitart/Acetaminophen 1 tab 11/17/19 16:09 11/22/19 09:20 [place] 5/325 PO 1 tab Q4H PRN Administration Moderate Pain (4-6) Amoxicillin/Clavulanate Potassium 500 mg 11/21/19 09:00 11/22/19 20:21 Augmentin PO 11/26/19 09:01 500 mg Q12HR JUDY Administration Famotidine 20 mg 11/17/19 21:00 11/22/19 20:21 Pepcid PO 20 mg 2100 JUDY Administration Latanoprost 1 drop 11/17/19 21:00 11/22/19 20:22 Xalatan 0.005% Ophth Soln EA EYE 1 drop HS JUDY Administration Levothyroxine Sodium 125 mcg 11/18/19 06:00 11/22/19 06:34 Synthroid PO 125 mcg 0600 JUDY Administration Liothyronine Sodium 25 mcg 11/18/19 09:00 11/22/19 09:20 Cytomel PO 25 mcg DAILY JUDY Administration Potassium Chloride 10 meq 11/18/19 08:00 11/22/19 09:21 Klor-Con 10 PO 10 meq QAM-WM JUDY Administration Senna/Docusate Sodium 2 tab 11/17/19 16:09 11/20/19 20:26 Senokot S PO 2 tab BID PRN Administration Constipation Simvastatin 10 mg 11/17/19 21:00 11/22/19 20:22 Zocor PO 10 mg HS JUDY Administration - Exam General Appearance: NAD ENT: normocephalic atraumatic Neck: supple, no JVD Heart: RRR Respiratory: normal chest expansion, rhonchi Gastrointestinal: soft, non-tender, non-distended, normal bowel sounds Hosp A/P (1) Acute exacerbation of CHF (congestive heart failure) Code(s): I50.9 - HEART FAILURE, UNSPECIFIED Status: Acute Qualifiers: Heart failure type: combined systolic and diastolic Qualified Code(s): I50.43 - Acute on chronic combined systolic (congestive) and diastolic ( congestive) heart failure (2) Acute metabolic encephalopathy Code(s): G93.41 - METABOLIC ENCEPHALOPATHY Status: Acute (3) Elevated LFTs Code(s): R94.5 - ABNORMAL RESULTS OF LIVER FUNCTION STUDIES Status: Acute (4) Physical deconditioning Code(s): R53.81 - OTHER MALAISE Status: Acute - Plan Cardiogenic shock resolved. The patient is off both dobutamine and Levophed drips. Her respiratory status appears to be stable. The patient and her family are deciding against more intensive treatment. Their goal is to be discharged to home or director statistical programming sitting and then transition to hospice. She is stable to be transferred to the medical floor. Consult CM for DC planning.
[2019-11-23] MEDS: Levothyroxine Sodium 125 MCG TAB PO SCH (05:24)
[2019-11-23 06:13] LABS: INR-International Normal Ratio 3.9; Prothrombin Time 37.8 SEC (12.0-14.7)
[2019-11-23 06:14] LABS: PTT 64.6 SEC (22.9-36.1)
[2019-11-23 06:22] LABS: Band 3 % (5-11); Eosinophils 3 % (0-10); Hemoglobin 14.2 g/dL (12.0-16.0); Lymphocytes 9 % (21-51); MDiff Complete? YES; Mean Corpuscular Hemoglobin 33.2 pg (27.0-31.0); Mean Platelet Volume 8.2 fL (7.4-10.4); Monocytes 3 % (0-10); Neutrophil 82 % (42-75); Platelet Count 81 thou/uL (130-400); Platelet Morphology Comment Appears Decreased; RBC Distribution Width 16.5 % (11.5-14.5); RBC Morphology Normal; Red Blood Cell (RBC) Count 4.28 mill/uL (4.20-5.40); White Blood Cell (WBC) Count 5.3 thou/uL (4.8-10.8)
[2019-11-23 06:33] LABS: ALT (SGPT) 37 U/L (8-55); AST (SGOT) 44 U/L (5-34); Albumin 2.7 g/dL (3.4-4.8); Alkaline Phosphatase 304 U/L (40-110); Anion Gap 13 mmol/L (10-20); BUN (Urea Nitrogen) 24 mg/dL (9.8-20.1); Calc. Creatinine Clearance 78 mL/min (70-130); Carbon Dioxide 26 mmol/L (23-31); Chloride 108 mmol/L (98-107); Estimated GFR-MDRD 68; Globulin 2.9 g/dL (2.4-3.5); Glucose 79 mg/dL (83-110); Potassium 4.2 mmol/L (3.5-5.1); Protein, Total 5.6 g/dL (6.0-8.3); Sodium 143 mmol/L (136-145)
[2019-11-23] MEDS: Amoxicillin/Potassium Clav 500 MG TAB PO SCH (09:23)
[2019-11-23] MEDS: Liothyronine Sodium 25 MCG TAB PO SCH (09:23)
[2019-11-23] MEDS: Potassium Chloride 10 MEQ TAB PO SCH (09:23)
--- NOTE | 2019-11-23 10:45 | PDOC.PALPN ---
Palliative Progress Note - Subjective Awake, alert, pleasantly confused. Patient ROS negative however, secondary to confusion is not a reliable source. - Objective Vital Signs: Vital Signs - Most Recent Temp Pulse Resp BP Pulse Ox 97.3 F L 83 20 107/52 L 93 L 11/23/19 07:26 11/23/19 07:26 11/23/19 07:26 11/23/19 07:26 11/23/19 07:42 - Physical Exam Constitutional: confusion, ill appearing HEENT: moist MMs, sclera anicteric Respiratory: diminished lung sound Cardiovascular: RRR Deviation from normal: distant heart sounds Gastrointestinal: soft, non-tender, incontinent Genitourinary: incontinent Musculoskeletal: no clubbing, edema present Neurology: no focal deficits Lymphatic: no nodes Skin: bruising, fragile Deviation from normal: lower ext wound as per photo in notes. Deviation from normal: Oriented to self but confused as to location and time. Confusion - Assessment (1) Palliative care encounter Code(s): Z51.5 - ENCOUNTER FOR PALLIATIVE CARE Current Visit: Yes Status: Acute (2) Physical deconditioning Code(s): R53.81 - OTHER MALAISE Current Visit: Yes Status: Acute (3) Acute exacerbation of CHF (congestive heart failure) Code(s): I50.9 - HEART FAILURE, UNSPECIFIED Current Visit: Yes Status: Acute Qualifiers: Heart failure type: combined systolic and diastolic Qualified Code(s): I50.43 - Acute on chronic combined systolic (congestive) and diastolic ( congestive) heart failure (4) Thrombocytopenia Code(s): D69.6 - THROMBOCYTOPENIA, UNSPECIFIED Current Visit: Yes Status: Acute (5) FTT (failure to thrive) in adult Current Visit: Yes Status: Chronic (6) Coagulopathy Current Visit: Yes Status: Resolved (7) Chronic diastolic heart failure Code(s): I50.32 - CHRONIC DIASTOLIC (CONGESTIVE) HEART FAILURE Current Visit: No Status: Chronic - Plan Plan: Met with son, difficult to establish Goal of Care as patient is not able to return to home setting secondary to elevated need for ADL and limited caregivers in home. Son has transitioned Ms Mays to comfort care and is requesting Hospice Evaluation for inpatient. Symptom management is expected for anticipated decline and respiratory compromise. Medications, with the exception of comfort meds, have been discontinued. Comfort medications including Ativan for restlessness and Morphine for air hunger,discomfort. Scopolamine to mitigate secretions. Choice Letter Obtained, and Magi from CM requested evaluation. Dr Ann notified [50] minutes spent on this encounter with >50% of the time in counseling and coordination of care. - ROS Non Response: due to mental status
[2019-11-23] MEDS ORDERED: Morphine 2 MG/ML SYRINGE SLOW IVP PRN (10:56)
[2019-11-23] MEDS: Lorazepam 2 MG/ML VIAL SLOW IVP SCH ×6 (11:56→22:45)
[2019-11-23] MEDS ORDERED: Scopolamine 1.5 mg/72 hour Patch TD SCH (12:00)
--- NOTE | 2019-11-23 15:49 | PDOC.HOSPP ---
- Subjective Encounter Date: 11/23/19 Subjective: The patient remains alert and stable - Objective Vital Signs & Weight: Vital Signs (12 hours) Temp Pulse Resp BP Pulse Ox 11/23/19 07:42 93 L 11/23/19 07:26 97.3 F L 83 20 107/52 L 93 L Weight Admit Weight 229 lb Weight 227 lb 8.273 oz Most Recent Monitor Data Heart Rate from ECG 71 NIBP 105/61 NIBP BP-Mean 75 Respiration from ECG 19 SpO2 96 I&O: 11/22/19 11/23/19 11/24/19 06:59 06:59 06:59 Intake Total 160 200 Output Total 1075 371 Balance -915 -171 Result Diagrams: 11/23/19 05:57 11/23/19 05:57 Hospitalist ROS - Medication Medications: Active Medications Generic Name Dose Route Start Last Admin Trade Name Freq PRN Reason Stop Dose Admin Hydrocodone Bitart/Acetaminophen 1 tab 11/17/19 16:09 11/22/19 09:20 [place] 5/325 PO 1 tab Q4H PRN Administration Moderate Pain (4-6) Famotidine 20 mg 11/17/19 21:00 11/22/19 20:21 Pepcid PO 20 mg 2100 JUDY Administration Latanoprost 1 drop 11/17/19 21:00 11/22/19 20:22 Xalatan 0.005% Ophth Soln EA EYE 1 drop HS JUDY Administration Levothyroxine Sodium 125 mcg 11/18/19 06:00 11/23/19 05:24 Synthroid PO 125 mcg 0600 JUDY Administration Lorazepam 1 mg 11/23/19 12:00 11/23/19 14:49 Ativan SLOW IVP Not Given Q2HR JUDY Potassium Chloride 10 meq 11/18/19 08:00 11/23/19 09:23 Klor-Con 10 PO 10 meq QAM-WM JUDY Administration Scopolamine 1.5 mg 11/23/19 12:00 11/23/19 11:57 Transderm Scop TD 1.5 mg Q3D JUDY Administration Senna/Docusate Sodium 2 tab 11/17/19 16:09 11/20/19 20:26 Senokot S PO 2 tab BID PRN Administration Constipation Sodium Chloride 10 ml 11/23/19 10:59 11/23/19 11:57 Flush - Normal Saline IVF 10 ml PRN PRN Administration Saline Flush - Exam General Appearance: awake alert ENT: normocephalic atraumatic Neck: supple Heart: RRR Respiratory: no tachypnea Gastrointestinal: soft Extremities: no cyanosis, no clubbing Hosp A/P (1) Acute exacerbation of CHF (congestive heart failure) Code(s): I50.9 - HEART FAILURE, UNSPECIFIED Status: Acute Qualifiers: Heart failure type: combined systolic and diastolic Qualified Code(s): I50.43 - Acute on chronic combined systolic (congestive) and diastolic ( congestive) heart failure (2) Acute metabolic encephalopathy Code(s): G93.41 - METABOLIC ENCEPHALOPATHY Status: Acute (3) Elevated LFTs Code(s): R94.5 - ABNORMAL RESULTS OF LIVER FUNCTION STUDIES Status: Acute (4) Physical deconditioning Code(s): R53.81 - OTHER MALAISE Status: Acute - Plan Cardiogenic shock resolved. The patient is off both dobutamine and Levophed drips. Her respiratory status appears to be stable. The patient and her family are deciding against more intensive treatment. Their goal is to be discharged to home or intermediate sitting and then transition to hospice. She is stable to be transferred to the medical floor. Consult CM for DC planning. 11/22: Patient now on hospice. Continue comfort measures. On Morphine, Ativan, and scopolamine
--- NOTE | 2019-11-23 17:35 | PDOC.PALFU ---
Palliative Care Follow-up Note [facility] did not accept patient. Son states she can not return to home setting secondary to care needed. Verona Bhakta RN communicated with CM. Patient has resources, this will need to private pay for Care in facility. Once facility is selected will identify if [facility] Palliative Care can follow patient with transition as appropriate to hospice.
[2019-11-23] MEDS: Latanoprost 0.005% Ophth Soln 2.5 ml Bottle EA EYE SCH (20:26)
[2019-11-23] MEDS: Famotidine 20 MG TAB PO SCH (20:26)
[2019-11-24] MEDS: Lorazepam 2 MG/ML VIAL SLOW IVP SCH ×8 (00:24→13:54)
[2019-11-24] MEDS: Levothyroxine Sodium 125 MCG TAB PO SCH (06:24)
[2019-11-24] MEDS: Potassium Chloride 10 MEQ TAB PO SCH (08:21)
[2019-11-24 15:44] VITALS: BP 129/78; TEMP 97.4
--- NOTE | 2019-11-24 22:01 | DIS ---
DATE OF ADMISSION: 11/17/2019 DATE OF DISCHARGE: 11/24/2019 HISTORY OF PRESENT ILLNESS AND HOSPITAL COURSE: This is a pleasant 89-year-old female with past medical history of atrial fibrillation, chronic lymphedema, hypertension, dyslipidemia, hypothyroidism, glaucoma, CHF with diastolic dysfunction, breast cancer, and osteoarthritis, who presented to the hospital with atrial fibrillation with rapid ventricular response with supratherapeutic INR on Coumadin. The patient was also found to be hypotensive and was placed on IV vasopressors and managed initially in the ICU. The patient was started on empiric IV antibiotics for suspected septic process and was placed on rate control medications. She was also found to be in volume overload and was diuresed. The patient had a brief ICU stay and her vital signs stabilized within a few days and vasopressors were discontinued. The patient was subsequently transferred to telemetry, where she remained in a stable, but poor condition. The patient and family met with Palliative Care team and decision was made to transition to comfort care and hospice. DISCHARGE DIAGNOSES: 1. Acute exacerbation of congestive heart failure. 2. Acute metabolic encephalopathy. 3. Liver failure. 4. Physical deconditioning. 5. Atrial fibrillation. 6. Septic shock. DISCHARGE MEDICATIONS: Her inpatient medications were discontinued and comfort medications will be initiated by hospice. Job ID: [id number]
--- NOTE | 2019-11-25 06:54 | PQF ---
COLBY LEE MOEZ [id number] CLINICAL DOCUMENTATION CLARIFICATION FORM: POST DISCHARGE Addendum to original discharge summary date: ____ Late entry note date: __ DATE: 11/25/2019 ATTN: Booker Sumner Please exercise your independent, professional judgment in responding to the clarification form. Clinical indicators are provided on the bottom of this form for your review Diagnosis: Sepsis Present on Admission (POA): [ > ] Yes [ ] No [ ] Unable to determine Coding guidelines require hospitals to identify whether a diagnosis was present on admission (POA) or not. To accurately assign the appropriate POA indicator, this information must be clearly documented within the medical record. CLINICAL INDICATORS - SIGNS / SYMPTOMS / LABS Laboratory 11/16 WBC 2.7; 2.8, Plt count 59; 49, Band Neutrophils 4, Lymphocytes 15 Vital signs 11/16 BP 84/48, Pulse 70, Resp 19 H&P p3 11/16 DR Campbell The pythas elevated LFTs, but RUQ ultrasound does not reveal any acute pathology. It is unclear I fthe patient hgas underlying infection. UA does not show any sign of infection as such Nephrology consult p1 11/16 Acute kidney injury Brief Pn p1 11/16 Dr Montanez When I arrived at pt room, I was told patient had bradycardia to 30s with 3.5 sec pause and BP in 40s SBP Consult p3 11/17 Dr Adamson Septic shock, suspected Consult p3 11/17 Dr Adamson Metabolic encephalopathy, resolved Hospitalist PN p6 11/18 Dr Berg Unclear source of infection, likley lugs or right knee??, has chronic b/l LE lymphemia Discharge summary o1 11/23 DR Ann Pt also found to be hypotensive suspcted septic process RISK FACTORS: H&P p1 3/ 89 year old Female H&P p1 3 HTN H&P p1 3 CHF H&P p1 11/16 Afib H&P p1 11/16 Morbid obesity Nephrology consult p2 11/16 CKD 3 TREATMENT: NOV 14 IV Vancomycin 1.5 NOV 14 IVF NS 1L NOV 14 IV Zosyn 3.3755 gm NOV 14 IV Levophed 250mls NOV 14 IV Solu-Cortef NOV 14 Augmentin 500mg po Blood and urine culture order 11/16 Respiratory panel 11/16 Oxygen 3L PICC ordered 11/16 Blood band 11/16 FFP Nephrology consult p2 11/16 - Monitor Renal function closely Admitted to ICU (This form is maintained as a part of the permanent medical record) 2014 [employer] All Rights Reserved [email or web address]
== END 2019-11-24 15:46 | disposition hospice, inpatient (51) | DRG 871 ==
LOC: ERS 10:49 → 2NO 16:09 → CCU 21:39 → T4-B 11-21 22:32
PROVIDERS: ADMIT Internal Medicine; ATTEND Internal Medicine
PROC: 3E033XZ Introduction of Vasopressor into Peripheral Vein, Percutaneous Approach (ICD-10-PCS; principal; 2019-11-17)
PROC: 06HY33Z Insertion of Infusion Device into Lower Vein, Percutaneous Approach (ICD-10-PCS; 2019-11-17)
PROC: 30243L1 Transfusion of Nonautologous Fresh Plasma into Central Vein, Percutaneous Approach (ICD-10-PCS; 2019-11-17)
PROC: 30243K1 Transfusion of Nonautologous Frozen Plasma into Central Vein, Percutaneous Approach (ICD-10-PCS; 2019-11-17)
DX: A41.9 Sepsis, unspecified organism (principal); R65.21 Severe sepsis with septic shock; G93.41 Metabolic encephalopathy; I50.33 Acute on chronic diastolic (congestive) heart failure; J96.01 Acute respiratory failure with hypoxia; R57.0 Cardiogenic shock; D68.59 Other primary thrombophilia; N17.9 Acute kidney failure, unspecified; E87.1 Hypo-osmolality and hyponatremia; I48.20 Chronic atrial fibrillation, unspecified; I13.0 Hypertensive heart and chronic kidney disease with heart failure and stage 1 through stage 4 chronic kidney disease, or unspecified chronic kidney disease; Z51.5 Encounter for palliative care; Z66 Do not resuscitate; E03.9 Hypothyroidism, unspecified; N18.3 Chronic kidney disease, stage 3 (moderate); E87.8 Other disorders of electrolyte and fluid balance, not elsewhere classified; E66.01 Morbid (severe) obesity due to excess calories; K72.90 Hepatic failure, unspecified without coma; R62.7 Adult failure to thrive; R00.1 Bradycardia, unspecified; E78.5 Hyperlipidemia, unspecified; H40.9 Unspecified glaucoma; Z85.42 Personal history of malignant neoplasm of other parts of uterus; Z90.710 Acquired absence of both cervix and uterus; Z79.899 Other long term (current) drug therapy; Z88.8 Allergy status to other drugs, medicaments and biological substances; Z85.3 Personal history of malignant neoplasm of breast; Z90.13 Acquired absence of bilateral breasts and nipples; Z85.828 Personal history of other malignant neoplasm of skin; Z68.35 Body mass index [BMI] 35.0-35.9, adult
CPT/HCPCS: 36415; 36416; 36430; 70450; 71045; 71250; 74177; 76705; 80053; 80202; 81003; 82140; 82553; 83605; 83615; 83690; 83735; 83880; 84443; 84484; 85025; 85060; 85610; 85730; 86850; 86880; 86900; 86901; 87040; 87086; 93005; 93010; 93306; 96361; 96374; J1720; J2060; J2543; J3430; J3490; P9059